=== PATIENT | female | born 1945 | race Caucasian/White ===

== ENCOUNTER 2020-08-10 10:57 | Inpatient (IN) | payer OTHER ==
[2020-08-10] MEDS ORDERED: LACTATED RINGERS SOLUTION 1000 ML INFUS.BAG IV ONE (11:41)
[2020-08-10 12:05] LABS: BASO % 0.5 % (0-2.0); EOS % 0.6 % (0-4.5); HEMATOCRIT 37.4 % (32.4-45.2); HEMOGLOBIN 12.6 GM/dL (10.7-15.3); LYMPH % 26.4 % (8-40); MCH 30.2 pg (25.7-33.7); MCHC 33.6 g/dl (32.0-36.0); MEAN CELL VOLUME 89.8 fl (80-96); MONO % 7.2 % (3.8-10.2); NEUT % 65.3 % (42.8-82.8); PLATELET COUNT 356 K/MM3 (134-434); RBC 4.17 M/mm3 (3.60-5.2); RDW 14.3 % (11.6-15.6); WHITE BLOOD COUNT 6.9 K/mm3 (4.0-10.0)
[2020-08-10 12:13] LABS: INR 1.03 (0.83-1.09); PROTHROMBIN TIME (PATIENT) 12.4 SEC (9.7-13.0)
[2020-08-10 12:16] LABS: ACTIVATED PTT 26.6 SECONDS (25.2-36.5)
[2020-08-10 12:20] LABS: CHLORIDE 106 mmol/L (98-107); SODIUM 140 mmol/L (136-145)
[2020-08-10 12:23] LABS: CALCIUM 9.5 mg/dL (8.5-10.1)
[2020-08-10 12:24] LABS: ALBUMIN 4.4 g/dl (3.4-5.0); ANION GAP 6 MMOL/L (8-16); BLOOD UREA NITROGEN 17.4 mg/dL (7-18); CO2 28 mmol/L (21-32); GLUCOSE,RANDOM 106 mg/dL (74-106); MAGNESIUM 2.5 mg/dL (1.8-2.4)
[2020-08-10 12:27] LABS: CREATININE 1.1 mg/dL (0.55-1.3); SGOT/AST 15 U/L (15-37); SGPT/ALT 25 U/L (13-61)
[2020-08-10 12:28] LABS: BILIRUBIN,TOTAL 0.7 mg/dL (0.2-1); TOT PROT 7.4 g/dl (6.4-8.2)
[2020-08-10 12:30] LABS: ALK PHOS 72 U/L (45-117)
[2020-08-10 12:33] LABS: EPI CELLS 21 /uL (0-25.1); HYALINE CASTS 0 /uL (0-3.1); PH,URINE 6.5 (5.0-8.0); URINE APPEARANCE CLEAR; URINE BACTERIA 299 /uL (0-1359); URINE BILIRUBIN NEGATIVE (NEGATIVE); URINE COLOR YELLOW; URINE GLUCOSE (UA) NEGATIVE (NEGATIVE); URINE KETONE NEGATIVE (NEGATIVE); URINE LEUK ESTERASE 3+ (NEGATIVE); URINE NITRITE NEGATIVE (NEGATIVE); URINE PROTEIN NEGATIVE (NEGATIVE); URINE RBC 7 /uL (0-23.9); URINE UROBILINOGEN 0.2 mg/dL (0.2-1.0); URINE WBC 69 /uL (0-25.8)
[2020-08-10] MEDS ORDERED: dilTIAZem HCL 50 MG/10 ML - 10 ML VIAL IVPUSH ONE ×2 (14:39→15:15)
[2020-08-10] MEDS ORDERED: dilTIAZem HCL 125 MG/25 ML - 25 ML VIAL ONE (14:56)
[2020-08-10] MEDS ORDERED: ALPRAZolam 0.25 MG TABLET PO ONE (15:15)
[2020-08-10] MEDS ORDERED: CEFTRIAXONE 1,000 MG in DEXTROSE 5%-WATER - 50 ML IVPB ONE (15:19)
[2020-08-10] MEDS ORDERED: CEFTRIAXONE 1 GM/50 ML BAG ONE (15:30)
[2020-08-10] MEDS ORDERED: ALPRAZolam 0.25 MG TABLET ONE (15:30)
[2020-08-10] MEDS ORDERED: dilTIAZem HCL 60 MG TABLET PO ONE (16:23)
[2020-08-10] MEDS ORDERED: dilTIAZem HCL 30 MG TABLET ONE (17:01)
[2020-08-10] MEDS ORDERED: ZOLPIDEM TARTRATE 5 MG TABLET PO ONE (18:00)
[2020-08-10] MEDS ORDERED: ZOLPIDEM TARTRATE 5 MG TABLET ONE (18:05)
[2020-08-10] MEDS ORDERED: ADENOSINE 6 MG/2 ML VIAL IVPUSH ONE (20:55)
[2020-08-10] MEDS ORDERED: DIGOXIN 0.5 MG/2 ML AMPUL IVPUSH ONE (21:22)
[2020-08-10] MEDS ORDERED: DIGOXIN 0.5 MG/2 ML AMPUL ONE (21:47)
[2020-08-10] MEDS ORDERED: ENOXAPARIN NA (PORCINE) 80 MG/0.8 ML DISP.SYRIN SQ ONE (21:48)
[2020-08-10] MEDS: ENOXAPARIN NA (PORCINE) 80 MG/0.8 ML DISP.SYRIN SQ SCH (21:48)
[2020-08-10] MEDS ORDERED: APIXABAN 5 MG TABLET PO SCH (22:00)
[2020-08-10] MEDS: ROSUVASTATIN CA 5 MG TABLET (FP) PO SCH (22:01)
[2020-08-11] MEDS ORDERED: dilTIAZem HCL 30 MG TABLET ONE ×2 (00:21→05:57)
[2020-08-11] MEDS: DIGOXIN 0.5 MG/2 ML AMPUL IVPUSH SCH ×3 (03:30→10:06)
[2020-08-11] MEDS ORDERED: DIGOXIN 0.5 MG/2 ML AMPUL ONE ×2 (03:31→09:11)
[2020-08-11] MEDS ORDERED: dilTIAZem HCL 60 MG TABLET ONE ×2 (05:56→12:29)
[2020-08-11 06:46] LABS: BASO % 0.5 % (0-2.0); EOS % 1.5 % (0-4.5); HEMATOCRIT 37.6 % (32.4-45.2); HEMOGLOBIN 12.3 GM/dL (10.7-15.3); LYMPH % 28.9 % (8-40); MCH 29.7 pg (25.7-33.7); MCHC 32.8 g/dl (32.0-36.0); MEAN CELL VOLUME 90.6 fl (80-96); MEAN PLT VOLUME 8.3 fl (7.5-11.1); MONO % 8.5 % (3.8-10.2); NEUT % 60.6 % (42.8-82.8); PLATELET COUNT 324 K/MM3 (134-434); RBC 4.15 M/mm3 (3.60-5.2); RDW 14.3 % (11.6-15.6); WHITE BLOOD COUNT 8.4 K/mm3 (4.0-10.0)
[2020-08-11 07:07] LABS: ALBUMIN 3.8 g/dl (3.4-5.0); BLOOD UREA NITROGEN 14.5 mg/dL (7-18); CALCIUM 9.4 mg/dL (8.5-10.1)
[2020-08-11 07:08] LABS: MAGNESIUM 2.5 mg/dL (1.8-2.4)
[2020-08-11 07:11] LABS: PHOSPHOROUS 3.5 mg/dL (2.5-4.9)
[2020-08-11 07:12] LABS: BILIRUBIN,TOTAL 0.7 mg/dL (0.2-1); TOT PROT 6.7 g/dl (6.4-8.2)
[2020-08-11] MEDS ORDERED: dilTIAZem HCL 30 MG TABLET PO SCH ×2 (07:39)
[2020-08-11] MEDS ORDERED: ENOXAPARIN NA (PORCINE) 80 MG/0.8 ML DISP.SYRIN SQ ONE (09:11)
[2020-08-11] MEDS ORDERED: LISINOPRIL 20 MG TABLET ONE (09:15)
[2020-08-11] MEDS ORDERED: DIGOXIN 0.25 MG TABLET (FP) ONE (09:15)
[2020-08-11] MEDS ORDERED: CEFTRIAXONE 1 GM/50 ML BAG ONE (09:16)
[2020-08-11] MEDS ORDERED: SUMAtriptan SUCCINATE 50 MG TABLET ONE (09:16)
[2020-08-11] MEDS ORDERED: CEFTRIAXONE 1 GM in DEXTROSE 5%-WATER - 50 ML IVPB SCH (10:00)
[2020-08-11] MEDS ORDERED: LISINOPRIL 20 MG TABLET PO SCH (10:00)
[2020-08-11] MEDS ORDERED: ENOXAPARIN NA (PORCINE) 40 MG/0.4 ML DISP.SYRIN SQ SCH (10:00)
[2020-08-11] MEDS: ENOXAPARIN NA (PORCINE) 80 MG/0.8 ML DISP.SYRIN SQ SCH ×2 (10:05→21:44)
[2020-08-11] MEDS: SUMAtriptan SUCCINATE 50 MG TABLET PO SCH (10:06)
[2020-08-11] MEDS: FENOFIBRIC ACID 135 MG CAP PO SCH (10:06)
[2020-08-11] MEDS ORDERED: ACETAMINOPHEN 325 MG TABLET (FP) ONE (12:31)
[2020-08-11] MEDS: dilTIAZem HCL 60 MG TABLET PO SCH ×3 (12:35→23:01)
[2020-08-11] MEDS ORDERED: ZOLPIDEM TARTRATE 5 MG TABLET PO PRN (17:39)
[2020-08-11 17:41] VITALS: BMI 25.8
[2020-08-11] MEDS: ROSUVASTATIN CA 5 MG TABLET (FP) PO SCH (21:46)
[2020-08-11] MEDS ORDERED: ACETAMINOPHEN 325 MG TABLET (FP) PO ONE (22:57)
[2020-08-12] MEDS ORDERED: IBUPROFEN 400 MG TABLET (FP) PO ONE (00:38)
[2020-08-12] MEDS: dilTIAZem HCL 60 MG TABLET PO SCH (06:09)
[2020-08-12] MEDS: APIXABAN 5 MG TABLET PO SCH ×2 (09:10→21:15)
[2020-08-12] MEDS: DIGOXIN 0.25 MG TABLET (FP) PO SCH (09:11)
[2020-08-12] MEDS: FENOFIBRIC ACID 135 MG CAP PO SCH (09:11)
[2020-08-12] MEDS: SUMAtriptan SUCCINATE 50 MG TABLET PO SCH (09:11)
[2020-08-12 10:12] LABS: CREATININE 0.8 mg/dL (0.55-1.3)
[2020-08-12] MEDS: FUROSEMIDE 40 MG TABLET (FP) PO SCH (11:36)
[2020-08-12] MEDS ORDERED: ALPRAZolam 1 MG TABLET PO ONE (14:04)
[2020-08-12] MEDS ORDERED: SUMAtriptan SUCCINATE 50 MG TABLET PO PRN (17:31)
[2020-08-12] MEDS: ROSUVASTATIN CA 5 MG TABLET (FP) PO SCH (21:15)
[2020-08-13] MEDS ORDERED: ACETAMINOPHEN 325 MG TABLET (FP) PO ONE (06:25)
[2020-08-13] MEDS ORDERED: PT OWN MED DRAWER 7, Y5N ONE (09:35)
[2020-08-13] MEDS: APIXABAN 5 MG TABLET PO SCH (09:38)
[2020-08-13] MEDS: DIGOXIN 0.25 MG TABLET (FP) PO SCH (09:38)
[2020-08-13] MEDS: FENOFIBRIC ACID 135 MG CAP PO SCH (09:38)
[2020-08-13] MEDS: FUROSEMIDE 40 MG TABLET (FP) PO SCH (09:38)
[2020-08-13] MEDS ORDERED: METOPROLOL TARTRATE 50 MG TABLET (FP) PO SCH (10:00)
[2020-08-13 10:32] VITALS: BP 115/66; PULSE 62; TEMP 97.6
== END 2020-08-13 13:00 | disposition short-term general hospital (02) | DRG 309 ==
LOC: JER 10:57 → JERBED 15:20 → J6WEST-2 08-11 16:56 → J4S 08-12 15:11
PROVIDERS: ADMIT Internal Medicine; ATTEND Internal Medicine
DX: I48.3 Typical atrial flutter (principal); I82.611 Acute embolism and thrombosis of superficial veins of right upper extremity; I10 Essential (primary) hypertension; F41.9 Anxiety disorder, unspecified; G43.909 Migraine, unspecified, not intractable, without status migrainosus; I35.1 Nonrheumatic aortic (valve) insufficiency; I34.0 Nonrheumatic mitral (valve) insufficiency; I37.1 Nonrheumatic pulmonary valve insufficiency; R09.02 Hypoxemia
CPT/HCPCS: 36415; 71045-TC-FY; 71275-TC; 80048; 80053; 81003; 82550; 83735; 84100; 84443; 84484; 85025; 85379; 85610; 85730; 87086; 93005; 93010; 93306-TC; 93971; 99285-25; C9803; Q9967; U0003; U0005